=== PATIENT | female | born 1995 | race Caucasian/White ===

== ENCOUNTER 2021-04-24 20:29 | Emergency (ER) | payer BC ==
[2021-04-24] MEDS ORDERED: SODIUM CHLORIDE 0.9% 500 ML 500 ML IV ONE (20:45)
[2021-04-24] MEDS ORDERED: diphenhydrAMINE 50 MG/ML 1 ML VIAL IVP STA (20:45)
[2021-04-24] MEDS ORDERED: FAMOTIDINE 20 MG/2 ML VIAL IV STA (20:45)
[2021-04-24] MEDS ORDERED: methylPREDNISolone SOD SUCCI 125 MG/2 ML VIAL IV STA (20:45)
--- NOTE | 2021-04-24 20:57 | ED ---
General Adult HPI - General Chief complaint: Allergic Reaction Stated complaint: Allergic Reaction Time Seen by Provider: 04/24/21 20:40 Source: patient, RN notes reviewed, old records reviewed Mode of arrival: wheelchair Limitations: no limitations - History of Present Illness Initial comments: 26-year-old female presenting with ALLERGIC reaction. Patient has a known ALLERGY to complain trees. She is uncertain if she did, in contact with pine trees but states that her son was playing with sticks. She denies any new ingestion she had eaten rice and shrimp earlier in the evening approximately 2 hours prior. She presents with tongue swelling, diffuse rash, difficulty breathing. No vomiting - Related Data Previous Rx's Medication Instructions Recorded Famotidine [Pepcid] 20 mg PO DAILY #7 tablet 04/24/21 diphenhydrAMINE [Benadryl] 25 mg PO TID PRN #21 capsule 04/24/21 predniSONE 50 mg PO DAILY #5 tab 04/24/21 Allergies Allergy/AdvReac Type Severity Reaction Status Date / Time No Known Allergies Allergy Verified 04/24/21 20:35 Review of Systems ROS Statement: Those systems with pertinent positive or pertinent negative responses have been documented in the HPI. ROS Other: All systems not noted in ROS Statement are negative. Past Medical History Past Medical History: No Reported History History of Any Multi-Drug Resistant Organisms: None Reported Past Surgical History: Section Past Psychological History: No Psychological Hx Reported Smoking Status: Never smoker Past Alcohol Use History: None Reported Past Drug Use History: None Reported General Exam Limitations: no limitations General appearance: alert, in no apparent distress Head exam: Present: atraumatic, normocephalic Eye exam: Present: PERRL, conjunctival injection ENT exam: Present: normal oropharynx Neck exam: Present: normal inspection. Absent: tenderness, meningismus Respiratory exam: Absent: respiratory distress, wheezes, rales Cardiovascular Exam: Present: normal rhythm, tachycardia GI/Abdominal exam: Present: soft. Absent: distended, tenderness, guarding Extremities exam: Present: normal inspection, normal capillary refill. Absent: pedal edema Neurological exam: Present: alert, oriented X3, CN II-XII intact. Absent: motor sensory deficit Skin exam: Present: erythema, urticaria (diffuse) Course Vital Signs 04/24/21 04/24/21 20:33 21:20 Temperature 98.3 F Pulse Rate 118 H 96 Respiratory 22 18 Rate Blood Pressure 154/93 130/84 O2 Sat by Pulse 98 99 Oximetry Medical Decision Making - Medical Decision Making 26-year-old female with ALLERGIC reaction Patient given Pepcid, Benadryl, steroids in the emergency department. Observe closely . Symptoms improved and resolved. Suspect ALLERGIC reaction to same trees. Patient prescribed Benadryl, Pepcid and prednisone. Return parameters discussed. Disposition Clinical Impression: Allergic reaction Disposition: HOME SELF-CARE Condition: Fair Prescriptions: diphenhydrAMINE [Benadryl] 25 mg PO TID PRN #21 capsule PRN Reason: Allergic Reaction Famotidine [Pepcid] 20 mg PO DAILY #7 tablet predniSONE 50 mg PO DAILY #5 tab Is patient prescribed a controlled substance at d/c from ED?: No Referrals: None,Stated [Primary Care Provider] - 1-2 days Susana Kyle MD [REFERRING] - 1-2 days Time of Disposition: 22:00
[2021-04-24 21:28] VITALS: BP 130/84; RESP 18
[2021-04-24 22:11] VITALS: PULSE 97; TEMP 98.2
== END 2021-04-24 22:11 | disposition home or self-care (01) ==
LOC: EC 20:29
DX: J30.1 Allergic rhinitis due to pollen (principal)
CPT/HCPCS: 99283; J1200; J2930

== ENCOUNTER → 2021-06-01 | Outpatient (CLI) | payer BC ==
--- NOTE | 2021-06-02 09:03 | XR ---
EXAMINATION TYPE: XR wrist limited LT DATE OF EXAM: 06/01/2021 CLINICAL HISTORY: pain TECHNIQUE: Frontal, lateral images of the left wrist are obtained. COMPARISON: None. FINDINGS: There is no acute fracture/dislocation evident. The joint spaces appear within normal sanders its. The overlying soft tissue appears unremarkable. IMPRESSION: There is no acute fracture or dislocation seen. ICD 10 NO FRACTURE, INITIAL EVALUATION
== END | disposition home or self-care (01) ==
LOC: RADXRMAIN 08:17
PROVIDERS: ATTEND Family Medicine
DX: M25.532 Pain in left wrist (principal)

== ENCOUNTER → 2021-06-01 | Outpatient (CLI) | payer BC ==
[2021-06-01 12:37] LABS: African American GFR (CKD) 116.3 (60.0-200.0); Albumin 4.6 g/dL (3.80-4.90); Albumin/Globulin Ratio 1.84 (1.60-3.17); Anion Gap 8.1 mmol/L (4.00-12.00); BUN/Creat Ratio 18.75 Ratio (12.00-20.00); Calcium 9.2 mg/dL (8.7-10.3); Carbon Dioxide 24.9 mmol/L (21.6-31.8); Globulin 2.5 g/dL (1.6-3.3); Non-African American GFR(CKD) 100.3 (60.0-200.0); Total Bilirubin 0.5 mg/dL (0.3-1.2); Total Protein 7.1 g/dL (6.2-8.2)
[2021-06-01 12:47] LABS: Basophils # (A) 0.05 X 10*3/uL (0.00-0.10); Basophils % (A) 0.8 %; Eosinophils # (A) 0.09 X 10*3/uL (0.04-0.35); Eosinophils % (A) 1.5 %; HCT 42.2 % (37.2-46.3); HGB 14.4 g/dL (12.0-15.0); Lymphocytes # (A) 2.65 X 10*3/uL (0.90-5.00); Lymphocytes % (A) 44.7 %; MCH 29.3 pg (27.0-32.0); MCHC 34.1 g/dL (32.0-37.0); MCV 85.9 fL (80.0-97.0); Mean Platelet Volume 11.9 fL (9.5-12.2); Monocytes # (A) 0.32 X 10*3/uL (0.20-1.00); Monocytes % (A) 5.4 %; Neutrophils # (A) 2.81 X 10*3/uL (1.80-7.70); Neutrophils % (A) 47.4 %; Platelet Count 231 X 10*3/uL (140-440); RBC 4.91 X 10*6/uL (4.10-5.20); RDW 13.2 % (11.5-14.5); WBC 5.93 X 10*3/uL (4.50-10.00)
== END | disposition home or self-care (01) ==
LOC: LABWHC1 08:06
PROVIDERS: ATTEND Family Medicine
DX: L83 Acanthosis nigricans (principal); T78.40XA Allergy, unspecified, initial encounter; M25.532 Pain in left wrist; R00.0 Tachycardia, unspecified
CPT/HCPCS: 36415; 80053; 84443; 85025

== ENCOUNTER 2022-10-09 12:19 | Emergency (ER) | payer BC ==
[2022-10-09 13:00] VITALS: BP 126/75; PULSE 138; RESP 20; TEMP 98.9
[2022-10-09] MEDS ORDERED: SODIUM CHLORIDE 0.9% 1,000 ML IV STA (16:31)
== END 2022-10-09 16:40 | disposition left against medical advice (07) ==
LOC: EC 12:19
DX: Z53.21 Procedure and treatment not carried out due to patient leaving prior to being seen by health care provider (principal)
CPT/HCPCS: 87502; 87635; 93005; 99499

== ENCOUNTER 2023-04-10 06:02 | Inpatient (IN) | payer BC, OTHER ==
[2023-04-10] MEDS ORDERED: miSOPROStoL 200 MCG TAB PO PRN ×2 (06:23→06:54)
[2023-04-10] MEDS ORDERED: TRANEXAMIC ACID IN NACL,ISO-OS 1,000 MG in EMPTY BAG 1 BAG IV PRN ×2 (06:23→06:54)
[2023-04-10] MEDS ORDERED: OXYTOCIN 10 UNIT/ML 1 ML VIAL IM PRN ×2 (06:23→06:54)
[2023-04-10] MEDS ORDERED: TERBUTALINE 1 MG/ML VIAL SQ PRN (06:23)
[2023-04-10] MEDS ORDERED: METHYLERGONOVINE 0.2 MG/ML 1 ML AMP IM PRN ×2 (06:23→06:54)
[2023-04-10] MEDS ORDERED: LIDOCAINE 0.5% (PF) 5 MG/ML (50 ML SDV) SQ PRN (06:23)
[2023-04-10] MEDS ORDERED: CARBOPROST TROMETHAMINE 250 MCG/ML 1 ML AMP IM PRN ×2 (06:23→06:54)
[2023-04-10] MEDS ORDERED: OXYTOCIN 30 UNITS/500 ML NS 30 UNIT in SALINE 1 500ML.BAG IV SCH ×2 (06:30→08:29)
[2023-04-10] MEDS ORDERED: CITRIC ACID-SODIUM CITRATE 15 ML CUP PO ONE (06:54)
[2023-04-10 06:58] LABS: Basophils % (A) 0 %; Eosinophils # (A) 0.1 k/uL (0-0.7); Eosinophils % (A) 2 %; HCT 36.5 % (34.0-46.0); HGB 12.4 gm/dL (11.4-16.0); Lymphocytes # (A) 2.4 k/uL (1.0-4.8); Lymphocytes % (A) 30 %; MCH 28.9 pg (25.0-35.0); MCHC 33.8 g/dL (31.0-37.0); MCV 85.3 fL (80.0-100.0); Monocytes # (A) 0.3 k/uL (0-1.0); Monocytes % (A) 4 %; Neutrophils # (A) 4.9 k/uL (1.3-7.7); Neutrophils % (A) 63 %; Platelet Count 131 k/uL (150-450); RBC 4.28 m/uL (3.80-5.40); RDW 14.4 % (11.5-15.5); WBC 7.8 k/uL (3.8-10.6)
--- NOTE | 2023-04-10 07:19 | P.HPOB ---
History of Present Illness H&P Date: 04/10/23 Chief Complaint: repeat low transverse 28-year-old presents at 40 weeks' gestation for repeat low transverse C- section. Review of Systems All systems: negative Constitutional: Denies chills, Denies fever Eyes: denies blurred vision, denies pain Ears, nose, mouth and throat: Denies headache, Denies sore throat Cardiovascular: Denies chest pain, Denies shortness of breath Respiratory: Denies cough Gastrointestinal: Denies abdominal pain, Denies diarrhea, Denies nausea, Denies vomiting Genitourinary: Denies dysuria, Denies hematuria Musculoskeletal: Denies myalgias Integumentary: Denies pruritus, Denies rash Neurological: Denies numbness, Denies weakness Psychiatric: Denies anxiety, Denies depression Endocrine: Denies fatigue, Denies weight change Past Medical History Past Medical History: No Reported History History of Any Multi-Drug Resistant Organisms: None Reported Past Surgical History: Section Past Psychological History: No Psychological Hx Reported Smoking Status: Never smoker Past Alcohol Use History: None Reported Past Drug Use History: None Reported Medications and Allergies Home Medications Medication Instructions Recorded Confirmed Type Famotidine [Pepcid] 20 mg PO DAILY #7 tablet 04/24/21 Rx diphenhydrAMINE [Benadryl] 25 mg PO TID PRN #21 capsule 04/24/21 Rx predniSONE 50 mg PO DAILY #5 tab 04/24/21 Rx Allergies Allergy/AdvReac Type Severity Reaction Status Date / Time shellfish derived [Shellfish] Allergy Anaphylaxis Verified 04/10/23 06:19 Exam Osteopathic Statement: *. No significant issues noted on an osteopathic structural exam other than those noted in the History and Physical/Consult. Vital Signs Temp Pulse Resp BP Pulse Ox 04/10/23 06:16 97.0 F L 86 16 122/72 97 Intake and Output 04/09/23 04/10/23 04/10/23 22:59 06:59 14:59 Other: Weight 112.037 kg Heart: Regular rate and rhythm Lungs: Clear to auscultation bilaterally Abdomen: Soft, nontender Extremities: Negative Homans sign Results Result Diagrams: 04/10/23 06:45 Abnormal Lab Results - Last 24 Hours (Table) 04/10/23 Range/Units 06:45 Plt Count 131 L (150-450) k/uL Assessment and Plan (1) Previous section Current Visit: Yes Status: Acute Code(s): Z98.891 - HISTORY OF UTERINE SCAR FROM PREVIOUS SURGERY SNOMED Code(s): 505360528 (2) 40 weeks gestation of Current Visit: Yes Status: Acute Code(s): Z3A.40 - 40 WEEKS GESTATION OF SNOMED Code(s): 60626845 Plan: 1. Repeat low transverse
[2023-04-10] MEDS: LACTATED RINGERS 1,000 ML IV SCH ×2 (07:23→08:40)
[2023-04-10] MEDS ORDERED: OXYTOCIN 30 UNITS/500 ML NS BAG IV ONE (07:45)
[2023-04-10] MEDS ORDERED: MORPHINE SULFATE (PF) 0.3 MG/0.3 ML SYR ONE (07:45)
[2023-04-10] MEDS ORDERED: DEXAMETHASONE SOD PHOSPHATE 4 MG/ML 1 ML VIAL ONE (07:45)
[2023-04-10] MEDS ORDERED: KETOROLAC 15 MG/ML 1 ML VIAL ONE (07:45)
[2023-04-10] MEDS ORDERED: ONDANSETRON 4 MG/2 ML VIAL ONE (07:45)
[2023-04-10] MEDS ORDERED: ONDANSETRON 4 MG/2 ML VIAL IVP PRN ×2 (08:17→08:29)
[2023-04-10] MEDS ORDERED: diphenhydrAMINE 50 MG/ML 1 ML VIAL IVP PRN ×3 (08:17→08:29)
[2023-04-10] MEDS ORDERED: NALOXONE 0.4 MG/ML 1 ML VIAL IV PRN ×2 (08:17→08:29)
[2023-04-10] MEDS ORDERED: diphenhydrAMINE 25 MG CAP PO PRN (08:29)
[2023-04-10] MEDS ORDERED: SIMETHICONE 80 MG CHEWABLE PO PRN (08:29)
[2023-04-10] MEDS ORDERED: LANOLIN CREAM 5 GM TUBE TOPICAL PRN (08:29)
[2023-04-10] MEDS ORDERED: diphenhydrAMINE 50 MG CAP PO PRN (08:29)
[2023-04-10] MEDS ORDERED: METOCLOPRAMIDE 5 MG/ML 2 ML VIAL IVP PRN (08:29)
[2023-04-10] MEDS ORDERED: ZOLPIDEM 5 MG TAB PO PRN (08:29)
[2023-04-10] MEDS: SENNOSIDES-DOCUSATE SODIUM 1 EACH TAB PO SCH ×2 (10:15→19:49)
[2023-04-10] MEDS: ACETAMINOPHEN TAB 500 MG TAB PO SCH ×3 (11:16→22:59)
[2023-04-10] MEDS: KETOROLAC 15 MG/ML 1 ML VIAL IVP SCH ×2 (14:03→19:49)
[2023-04-10] MEDS: IBUPROFEN 600 MG TAB PO SCH ×2 (14:06→23:05)
[2023-04-10] MEDS ORDERED: Rhogam IMMUNE GLOBULIN 1,500 UNIT/1 ML IM ONE (22:06)
[2023-04-11] MEDS: LACTATED RINGERS 1,000 ML IV SCH ×2 (01:04→19:07)
[2023-04-11] MEDS: IBUPROFEN 600 MG TAB PO SCH ×4 (01:57→20:01)
[2023-04-11] MEDS: KETOROLAC 15 MG/ML 1 ML VIAL IVP SCH ×2 (03:19→12:06)
[2023-04-11] MEDS: ACETAMINOPHEN TAB 500 MG TAB PO SCH ×4 (04:43→23:52)
--- NOTE | 2023-04-11 05:45 | P.PN ---
Progress Note - Text Progress Note Date: 04/11/23 (8420) Anesthesia Postop day 1 Subjective: Status Post section with Duramorph. Patient seen and examined. Doing well without complaint. VAS 0. Mild pruritus. No nausea vomiting. Afebrile. Gross lower extremity strength intact. Without apparent anesthetic complications. Objective: Vital signs reviewed Heart: Regular Rate Lungs: Good chest excursion Abdomen: Appears nondistended Assessment: Status post with Duramorph postop day 1 Plan: Continue current care with your medical management. Anticipated and the Duramorph section around time today. You may see increased pain needs around this time
--- NOTE | 2023-04-11 06:56 | P.PNOBGPC ---
Subjective - Subjective Principal diagnosis: Status post repeat section postoperative day #1 Interval history: Patient is doing well. She is not passing flatus or bowel movement yet. She has urinated. She is ambulated a couple times to the bathroom. Lochia has been decreasing. She is breast-feeding. Patient reports: Reports appetite normal, Reports voiding normally, Reports pain well controlled, Reports ambulating normally : doing well, nursing well Objective - Vital Signs Latest vital signs: Vital Signs Temp Pulse Resp BP Pulse Ox 04/11/23 03:54 98.7 F 77 16 111/69 99 04/11/23 00:00 98.6 F 86 16 112/72 97 04/10/23 20:00 98.1 F 85 16 130/74 98 04/10/23 16:00 98.0 F 85 18 114/63 96 04/10/23 12:00 97.7 F 84 18 121/77 99 04/10/23 11:13 18 98 04/10/23 10:30 96.7 F L 73 18 120/59 99 04/10/23 10:00 96.7 F L 76 18 110/65 97 04/10/23 09:30 96.6 F L 76 18 114/61 97 04/10/23 09:17 18 95 04/10/23 09:15 65 18 128/59 95 04/10/23 09:00 96.1 F L 82 18 117/56 96 04/10/23 08:45 96.3 F L 72 18 124/53 96 04/10/23 08:30 96.7 F L 89 16 127/58 96 04/10/23 08:17 18 97 Intake and Output 04/10/23 04/10/23 04/11/23 14:59 22:59 06:59 Intake Total 600 Output Total 1051 200 300 Balance -1051 -200 300 Intake: Oral 600 Output: Urine 300 200 300 Emesis 175 Estimated Blood Loss 400 Output, Quantitative 176 Blood Loss Other: Voiding Method Indwelling Catheter Indwelling Catheter - Exam Extremities: Present: normal. Absent: tenderness, edema Abdomen: Present: normal appearance, soft (Positive bowel sounds 4). Absent: distention, tenderness Incision: Present: normal, dry, intact. Absent: erythematous Uterus: Present: normal, firm. Absent: tenderness - Labs Labs: Abnormal Lab Results - Last 24 Hours (Table) 04/10/23 Range/Units 06:45 Plt Count 131 L (150-450) k/uL Assessment and Plan Assessment: Status post repeat low transverse section postoperative day #1 Plan: Patient is encouraged to ambulate. Will advance diet as tolerated after flatus. Continue with and postoperative care.
[2023-04-11 07:33] LABS: Basophils % (A) 0 %; Eosinophils # (A) 0.1 k/uL (0-0.7); Eosinophils % (A) 2 %; HCT 29.8 % (34.0-46.0); HGB 10.4 gm/dL (11.4-16.0); Lymphocytes # (A) 2.7 k/uL (1.0-4.8); Lymphocytes % (A) 33 %; MCH 30.4 pg (25.0-35.0); MCHC 34.7 g/dL (31.0-37.0); MCV 87.4 fL (80.0-100.0); Mean Platelet Volume 10.6; Monocytes # (A) 0.4 k/uL (0-1.0); Monocytes % (A) 4 %; Neutrophils # (A) 5.1 k/uL (1.3-7.7); Neutrophils % (A) 60 %; Platelet Count 135 k/uL (150-450); RBC 3.41 m/uL (3.80-5.40); RDW 14.6 % (11.5-15.5); WBC 8.4 k/uL (3.8-10.6)
[2023-04-11] MEDS: SENNOSIDES-DOCUSATE SODIUM 1 EACH TAB PO SCH ×2 (08:04→20:01)
[2023-04-11 12:14] VITALS: RESP 18
[2023-04-12] MEDS: IBUPROFEN 600 MG TAB PO SCH ×2 (01:52→08:49)
[2023-04-12] MEDS: ACETAMINOPHEN TAB 500 MG TAB PO SCH ×2 (06:06→12:14)
[2023-04-12] MEDS: SENNOSIDES-DOCUSATE SODIUM 1 EACH TAB PO SCH (08:49)
[2023-04-12 08:55] VITALS: BP 125/73; PULSE 69; TEMP 99
--- NOTE | 2023-04-12 10:42 | P.DS ---
Providers Date of admission: 04/10/23 06:02 Expected date of discharge: 04/12/23 Attending physician: Yasmine Rao Primary care physician: Stated None Hospital Course: This is a 28-year-old female 2 para 1 at 40-0/7 weeks who presented for scheduled repeat section. She underwent a repeat low transverse section under spinal anesthesia on 04/10/2023 and delivered a viable male with scores of 9 at 1 minute and 9 at 5 minutes and infant weight of 7 lbs. 14 oz. Her post operative and courses have been uncomplicated. Lochia has been decreasing. Her pain is been fairly well-controlled with ibuprofen and Tylenol. She is passing flatus and bowel movement and urinating without difficulty. She is breast-feeding. Vital signs are stable. Abdomen is soft with fundus firm and nontender. Incision is clean dry and intact with fabian in place. Extremities show negative Homans. Impression is status post repeat low transverse section postoperative day #2. Plan is to discharge home today. Routine and postoperative instructions are given. Fabian will be removed and Steri-Strips placed prior to discharge. Is advised to follow-up in the office in 6 weeks for a check and in 1 week for a postoperative check. She is advised to call the office if she has any further questions or concerns prior to her appointment time. Procedures: Repeat low transverse section on 04/10/2023 Patient Condition at Discharge: Stable Plan - Discharge Summary New Discharge Prescriptions: New Ibuprofen [Motrin] 600 mg PO Q6H #60 tab No Action Famotidine [Pepcid] 20 mg PO DAILY #7 tablet predniSONE 50 mg PO DAILY #5 tab diphenhydrAMINE [Benadryl] 25 mg PO TID PRN #21 capsule PRN Reason: Allergic Reaction Discharge Medication List Famotidine [Pepcid] 20 mg PO DAILY #7 tablet 04/24/21 [Rx] diphenhydrAMINE [Benadryl] 25 mg PO TID PRN #21 capsule 04/24/21 [Rx] predniSONE 50 mg PO DAILY #5 tab 04/24/21 [Rx] Ibuprofen [Motrin] 600 mg PO Q6H #60 tab 04/12/23 [Rx] Follow up Appointment(s)/Referral(s): Yasmine Rao DO [Doctor of Osteopathic Medicine] - 05/19/23 10:45 am (Post Op Appointment 04-20-2023 at 9:45) Activity/Diet/Wound Care/Special Instructions: Instructions 1. Do not begin any exercise program for 3 weeks. 2. Do not resume sexual relations for 3 weeks or longer if uncomfortable. 3. You may take tub baths or showers at any time. 4. You may use tampons if desired after 3 weeks. 5. Keep the area of episiotomy (stitches) clean and dry. 6. If you are not nursing, wear a good fitting, supportive bra during the day and limit fluid intake for at least 1 week to prevent breast engorgement. 7. Call the office, [phone], within the next week to make appointment for your 6 week checkup if it has not already been made. 8. Report any of the following occurrences to the doctor promptly: a. Heavy, excessive bleeding b. Chills, fever c. Burning or frequency of urination d. Pain or redness and breasts if nursing e. Increasing pain or swelling in episiotomy (stitches). In addition to the above instructions, the following additional should be followed: 1. No heavy lifting or straining (exercising) until after 6 week checkup. 2. Keep abdominal incision clean and dry: You may wear a dressing if more comfortable. 3. Make office appointment for 10 days after going home or as instructed by her doctor. Discharge Disposition: HOME SELF-CARE
== END 2023-04-12 14:15 | disposition home or self-care (01) | DRG 807 ==
LOC: 4FBP 06:02
PROVIDERS: ADMIT Obstetrics & Gynecology; ATTEND Obstetrics & Gynecology
PROC: 10E0XZZ Delivery of Products of Conception, External Approach (ICD-10-PCS; principal; 2023-04-10 08:00)
DX: O34.211 Maternal care for low transverse scar from previous cesarean delivery (principal); Z37.0 Single live birth; O99.73 Diseases of the skin and subcutaneous tissue complicating the puerperium; L29.9 Pruritus, unspecified; Z3A.40 40 weeks gestation of pregnancy; Z91.013 Allergy to seafood
CPT/HCPCS: 85025; 85461; 86850; 86900; 86901

== ENCOUNTER → 2025-02-24 | Outpatient (CLI) | payer BC ==
--- NOTE | 2025-03-03 12:44 | BMR ---
EXAM DATE: 02/24/2025 EXAM DESCRIPTION: MRI-Breast Bilat (W/WO Contrast) INDICATION: Mammary duct ectasia diagnostic MRI COMPARISON: Correlation to mammograms: 02/07/2025. Correlation to ultrasound: 02/09/2025. CONTRAST: 11.5 cc Gadavist IV gadolinium contrast TECHNIQUE: Study was performed at [facility] with Radiologic interpretation by [facility] Multiplanar multisequence MR imaging of both breasts was performed with a dedicated breast coil. Images were obtained before and after administration of IV gadolinium, using the standard breast mass protocol. Computer aided detection was utilized for interpretation. FINDINGS: LMP: Not provided General breast composition: There are scattered areas of fibroglandular tissue Background parenchymal enhancement: Mild RIGHT BREAST: The T2 weighted series shows no areas of abnormal signal intensity. Review of the dynamic series shows no early or abnormal enhancement. LEFT BREAST: The T2 weighted series shows multiple intramammary lymph nodes in the upper outer left breast. Review of the dynamic series shows no early or abnormal enhancement. LYMPH NODES: There is no evidence of internal mammary or axillary adenopathy. IMPRESSION: RIGHT BREAST: No MR evidence of malignancy. LEFT BREAST: No MR evidence of malignancy. OVERALL ASSESSMENT -- BI-RADS 2: Benign ANNUAL SCREENING BREAST MRI IN ADDITION TO MAMMOGRAPHY IS RECOMMENDED IN PATIENTS WITH LIFETIME RISK OF BREAST CANCER >20% MTDD
== END | disposition home or self-care (01) ==
LOC: RADMRIMAIN 16:50
PROVIDERS: ATTEND Obstetrics & Gynecology
DX: N60.42 Mammary duct ectasia of left breast (principal); R92.323 Mammographic fibroglandular density, bilateral breasts
CPT/HCPCS: 77049; A9585